=== PATIENT | male | born 1980 | race Caucasian/White ===

== ENCOUNTER 2017-06-01 11:33 | Emergency (ER) | payer BC, OTHER ==
[2017-06-01 12:07] VITALS: BP 132/80
--- NOTE | 2017-06-01 12:22 | UC ---
Upper Extremity HPI - HPI Summary HPI Summary: Patient was lifting a large amount of weight and heard a snap in his left wrist. has had some pain along the ulnar side since. - History of Current Complaint Chief Complaint: UCUpperExtremity Stated Complaint: LEFT WRIST PAIN Time Seen by Provider: 06/01/17 12:08 Hx Obtained From: Patient ?: No Onset/Duration: Sudden Onset, Lasting Days Severity Initially: Moderate Severity Currently: Mild Location Of Pain: Is Discrete @ - ulnar collateral lig of wrist Character: Dull Aggravating Factor(s): Movement Alleviating Factor(s): Nothing Associated Signs And Symptoms: Positive: Negative - Allergies/Home Medications Allergies/Adverse Reactions: Allergies Allergy/AdvReac Type Severity Reaction Status Date / Time No Known Allergies Allergy Verified 06/01/17 12:01 Home Medications: Home Medications NK [No Home Medications Reported] 06/01/17 [History Confirmed 06/01/17] PMH/Surg Hx/FS Hx/Imm Hx Previously Healthy: Yes - Surgical History Surgical History: None - Family History Known Family History: Positive: Hypertension - Social History Alcohol Use: Occasionally Substance Use Type: None Smoking Status (MU): Never Smoked Tobacco - Immunization History Most Recent Influenza Vaccination: unknown Most Recent Tetanus Shot: UTD Review of Systems Constitutional: Negative Skin: Negative Eyes: Negative ENT: Negative Respiratory: Negative Cardiovascular: Negative Gastrointestinal: Negative Genitourinary: Negative Motor: Negative Neurovascular: Negative Musculoskeletal: Arthralgia, Decreased ROM Neurological: Negative Psychological: Negative All Other Systems Reviewed And Are Negative: Yes Physical Exam Triage Information Reviewed: Yes Appearance: Well-Appearing, Well-Nourished, Pain Distress Vital Signs: Initial Vital Signs Temp 99 F 06/01/17 12:02 Pulse 85 06/01/17 12:02 Resp 16 06/01/17 12:02 BP 132/80 06/01/17 12:02 Pulse Ox 98 06/01/17 12:02 Vital Signs Reviewed: Yes Eye Exam: Normal ENT Exam: Normal Dental Exam: Normal Neck exam: Normal Respiratory Exam: Normal Cardiovascular Exam: Normal Abdominal Exam: Normal Bowel Sounds: Positive: Present Musculoskeletal: Positive: Strength Intact, No Edema, ROM Limited @, Other: - pain over the ulnar Yola, lig with palpation and extreme radial deviation, upon moving the joint, a pop felt which immediately reduced the pain Neurological Exam: Normal Neurological: Positive: Alert, Muscle Tone Normal, Other: - good color and sensation Psychological Exam: Normal Skin Exam: Normal Upper Extremity Course/Dx - Course Course Of Treatment: hx obtained, exam performed ,meds reviewed, splint refused , recommend wrist protection with heavy lifting - Differential Dx/Diagnosis Provider Diagnoses: left wrist sprain Discharge - Discharge Plan Condition: Stable Disposition: HOME Patient Education Materials: Wrist Sprain (ED) Referrals: Sj Rucker MD [Primary Care Provider] - Additional Instructions: 1. Ibuprofen and heat or ice ( which ever feels better) for pain relief 2. Make sure you are using a support while lifting heavy weights. 3. Follow up if pain persists.
== END 2017-06-01 12:27 | disposition home or self-care (01) ==
LOC: UCCORT 11:33
DX: S63.502A Unspecified sprain of left wrist, initial encounter (principal); X50.9XXA Other and unspecified overexertion or strenuous movements or postures, initial encounter; Y92.9 Unspecified place or not applicable
CPT/HCPCS: 99201; G0463

== ENCOUNTER 2017-07-25 09:44 | Emergency (ER) | payer BC ==
--- NOTE | 2017-07-25 10:35 | RAD ---
INDICATION: 2 months popping ulnar side of LEFT wrist when lifting weights. Worsening yesterday. COMPARISON: No relevant prior exams available on the [facility] for comparison. TECHNIQUE: AP, lateral, and oblique views LEFT wrist. REPORT AND IMPRESSION: Negative for fracture or malalignment. Preserved joint spaces. Nonfocal soft tissue swelling.
--- NOTE | 2017-07-25 10:48 | UC ---
Upper Extremity HPI - HPI Summary HPI Summary: patient was seen 2 weeks ago for some left wrsit pain after lifting a heavy bar mu[place]. during the exam the provider was manipulating the joint, heard a pop and the pain was gone, he returns today with increased pain after lifting and moving a heeavy object last night, same wrist, he has full ROM but it is painful - History of Current Complaint Stated Complaint: LEFT WRIST INJURY Time Seen by Provider: 07/25/17 10:17 Hx Obtained From: Patient ?: No Onset/Duration: Sudden Onset, Lasting Hours Severity Initially: Moderate Severity Currently: Moderate Location Of Pain: Is Discrete @ - lwft wrist Character: Dull, Aching Aggravating Factor(s): Movement, Lifting Alleviating Factor(s): Nothing - Allergies/Home Medications Allergies/Adverse Reactions: Allergies Allergy/AdvReac Type Severity Reaction Status Date / Time No Known Allergies Allergy Verified 06/01/17 12:01 PMH/Surg Hx/FS Hx/Imm Hx Previously Healthy: Yes - Surgical History Surgical History: None - Family History Known Family History: Positive: Hypertension - Social History Alcohol Use: Occasionally Substance Use Type: None Smoking Status (MU): Never Smoked Tobacco - Immunization History Most Recent Influenza Vaccination: unknown Most Recent Tetanus Shot: UTD Review of Systems Constitutional: Negative Skin: Negative Eyes: Negative ENT: Negative Respiratory: Negative Cardiovascular: Negative Gastrointestinal: Negative Genitourinary: Negative Motor: Negative Neurovascular: Negative Musculoskeletal: Arthralgia, Myalgia Neurological: Negative Psychological: Negative Is Patient Immunocompromised?: No All Other Systems Reviewed And Are Negative: Yes Physical Exam Triage Information Reviewed: Yes Appearance: Well-Appearing, Well-Nourished, Pain Distress Vital Signs Reviewed: Yes Eye Exam: Normal ENT Exam: Normal Dental Exam: Normal Neck exam: Normal Neck: Positive: Supple, Nontender, No Lymphadenopathy Respiratory Exam: Normal Respiratory: Positive: Chest non-tender, Lungs clear, Normal breath sounds Cardiovascular Exam: Normal Cardiovascular: Positive: RRR, No Murmur, Pulses Normal Abdominal Exam: Normal Abdomen Description: Positive: Nontender, No Organomegaly, Soft Bowel Sounds: Positive: Present Musculoskeletal Exam: Normal Musculoskeletal: Positive: ROM Intact, No Edema, Strength Limited @ - weak in flexion Neurological Exam: Normal Neurological: Positive: Alert, Muscle Tone Normal Psychological Exam: Normal Skin Exam: Normal Upper Extremity Course/Dx - Course Course Of Treatment: Hx obtained, exam performed ,meds reviewed, xray obtained neg for fracture, referred to ortho for follow up and possible splint. educated on ligament injury - Differential Dx/Diagnosis Differential Diagnosis/HQI/PQRI: Bursitis, Contusion, Fracture (Closed), Strain , Sprain Provider Diagnoses: left ulnar ligament sprain Discharge - Discharge Plan Condition: Stable Disposition: HOME Patient Education Materials: Wrist Sprain (ED) Referrals: Sj Rucker MD [Primary Care Provider] - Additional Instructions: 1. keep motion and lifting pain free 2. Follow up with Dr pagan this week 3. Ibuprofen for pain, and warm water soaks, heat
[2017-07-25 10:54] VITALS: BP 122/82
== END 2017-07-25 11:06 | disposition home or self-care (01) ==
LOC: UCCORT 09:44
DX: S53.32XA Traumatic rupture of left ulnar collateral ligament, initial encounter (principal); X50.0XXA Overexertion from strenuous movement or load, initial encounter; Y93.9 Activity, unspecified; Y92.9 Unspecified place or not applicable
CPT/HCPCS: 99211; G0463

== ENCOUNTER 2018-03-24 07:54 | Emergency (ER) | payer BC ==
[2018-03-24 08:13] VITALS: BP 131/86
--- NOTE | 2018-03-24 08:42 | UC ---
Abdominal Pain Male HPI - HPI Summary HPI Summary: abdominal pain x 2 days mid abdominal pain , pain is dull, no radiation of pain , + nausea , no vomiting , no diarrhea, no constipation , no urinary sx, no fever , no chills - History of Current Complaint Chief Complaint: UCAbdominalPain Stated Complaint: LOWER ABD PAIN Time Seen by Provider: 03/24/18 08:14 Hx Obtained From: Patient Onset/Duration: Gradual Onset, Lasting Days - 2, Still Present Timing: Constant Severity Initially: Moderate Severity Currently: Moderate Pain Intensity: 5 Pain Scale Used: 0-10 Numeric Location: Other - mid abdomin Radiates: No Character: Aching Aggravating Factor(s): Nothing Alleviating Factor(s): Nothing Associated Signs And Symptoms: Positive: Nausea. Negative: Diaphoresis, Fever, Cough, Chest Pain, Back Pain, Constipation, Blood in Stool, Urinary Symptoms, Decreased Appetite, Vomiting, Diarrhea, Penile Discharge - Allergies/Home Medications Allergies/Adverse Reactions: Allergies Allergy/AdvReac Type Severity Reaction Status Date / Time No Known Allergies Allergy Verified 03/24/18 08:09 PMH/Surg Hx/FS Hx/Imm Hx Previously Healthy: Yes - Surgical History Surgical History: None - Family History Known Family History: Positive: Hypertension - Social History Alcohol Use: Occasionally Substance Use Type: None Smoking Status (MU): Never Smoked Tobacco - Immunization History Most Recent Influenza Vaccination: unknown Most Recent Tetanus Shot: UTD Review of Systems Constitutional: Negative Skin: Negative Eyes: Negative ENT: Negative Respiratory: Negative Cardiovascular: Negative Gastrointestinal: Abdominal Pain, Nausea Genitourinary: Negative Is Patient Immunocompromised?: No All Other Systems Reviewed And Are Negative: Yes Physical Exam Triage Information Reviewed: Yes Appearance: Well-Appearing, No Pain Distress, Well-Nourished Vital Signs: Initial Vital Signs Temp 98.8 F 03/24/18 08:06 Pulse 80 03/24/18 08:06 Resp 16 03/24/18 08:06 BP 131/86 03/24/18 08:06 Pulse Ox 98 03/24/18 08:06 Vital Signs Reviewed: Yes Eye Exam: Normal Eyes: Positive: Conjunctiva Clear ENT: Positive: Normal ENT inspection, Hearing grossly normal, Pharynx normal Neck: Positive: Supple, Nontender, No Lymphadenopathy Respiratory: Positive: Chest non-tender, Lungs clear, Normal breath sounds Cardiovascular: Positive: RRR, No Murmur, Pulses Normal Abdomen Description: Positive: Soft, Other: - mild tenderness mid abdomin. Negative: CVA Tenderness (R), CVA Tenderness (L), Distended, Guarding, Hernia @ , Pulsatile Mass Bowel Sounds: Positive: Present Skin Exam: Normal Abd Pain Male Course/Dx - Differential Dx/Clinical Impression Provider Diagnoses: abdominal pain Discharge - Sign-Out/Discharge Documenting (check all that apply): Discharge/Admit/Transfer - Discharge Plan Condition: Stable Disposition: HOME Prescriptions: Omeprazole 40 mg PO DAILY WITH MEAL #14 cap Patient Education Materials: Acute Abdominal Pain (ED) Referrals: Sj Rucker MD [Primary Care Provider] - 5 Days Additional Instructions: cont. with rest, fluid, will have you Try Omeprazol daily for the next 2 weeks follow up with your pcp in 5 days if not better, go to ED if increase in pain/ getting worse - Billing Disposition and Condition Condition: STABLE Disposition: HOME
== END 2018-03-24 08:27 | disposition home or self-care (01) ==
LOC: UCCORT 07:54
DX: R10.30 Lower abdominal pain, unspecified (principal)
CPT/HCPCS: 99212; G0463